=== PATIENT | female | born 2000 | race Caucasian/White ===

== ENCOUNTER 2021-08-07 22:23 | Emergency (ER) | payer MEDICAID ==
[~2021-08-07] VITALS: Ht 160 cm; Wt 72.0 kg
[2021-08-07] MEDS ORDERED: MECLIZINE 25MG TABLET PO ONE (23:45)
[2021-08-07] MEDS ORDERED: KETOROLAC 60MG/2ML VIAL IM ONE (23:45)
[2021-08-08] MEDS ORDERED: MECL-159 MT (00:49)
[2021-08-08] MEDS ORDERED: OFLO5DRO4 LEFT EAR (00:49)
[2021-08-08 02:34] VITALS: BP 131/74
== END 2021-08-08 02:35 | disposition home or self-care (01) ==
LOC: ER 22:23
DX: H60.92 Unspecified otitis externa, left ear (principal); R42 Dizziness and giddiness
CPT/HCPCS: 70450; 81025; 93005; 99284; J1885; J8597